=== PATIENT | female | born 1970 | race Hispanic/Latino ===

== ENCOUNTER 2017-04-26 16:12 | Emergency (ER) | payer BC, OTHER ==
[~2017-04-26] VITALS: Ht 177.8 cm; Wt 82.2 kg
[2017-04-26] MEDS ORDERED: INDOCIN50 MG PO (21:05)
[2017-04-26] MEDS ORDERED: ULTRACET1 TABLET PO (21:05)
[2017-04-26 21:21] VITALS: BP 149/99
== END 2017-04-26 21:22 | disposition home or self-care (01) ==
LOC: EME 16:12
DX: M77.11 Lateral epicondylitis, right elbow (principal); F17.200 Nicotine dependence, unspecified, uncomplicated
CPT/HCPCS: 73080; 99281; 99283